=== PATIENT | male | born 1940 | race Caucasian/White ===

== ENCOUNTER 2022-10-24 09:31 | Inpatient (IN) | payer MEDICARE ==
[2022-10-24 10:12] LABS: #Basophils 0.1 thou/uL (0.0-0.2); #Eosinphils 0.3 thou/uL (0.0-0.7); #Lymphocytes 1.5 thou/uL (1.20-3.40); #Monocytes 1.1 thou/uL (0.11-0.59); #Neutrophils 8.7 thou/uL (1.40-6.50); %Basophils 0.5 % (0.0-1.0); %Eosinophils 2.9 % (0.0-10.0); %Lymphocytes 12.8 % (21.0-51.0); %Monocytes 9.6 % (0.0-10.0); %Neutrophils 74.2 % (42.0-75.0); Hemoglobin 14.4 g/dL (14.0-18.0); Mean Corpuscular Hemoglobin 32.4 pg (27.0-31.0); Mean Corpuscular Volume 98.2 fl (78.0-98.0); Mean Platelet Volume 7.7 fL (7.4-10.4); Platelet Count 359 10x3/uL (130-400); RBC Distribution Width 12.7 % (11.5-14.5); Red Blood Cell (RBC) Count 4.45 mill/uL (4.70-6.10); White Blood Cell (WBC) Count 11.7 10x3/uL (4.8-10.8)
[2022-10-24 10:37] LABS: Acetaminophen Less than 10.0 mcg/mL (10.0-30.0); Alcohol Less than 10 mg/dL (Less than 10); Salicylate Less than 8.0 mg/dL (15.0-30.0)
[2022-10-24 10:42] LABS: ALT (SGPT) 133 U/L (8-55); AST (SGOT) 54 U/L (5-34); Albumin 3.9 g/dL (3.4-4.8); Alkaline Phosphatase 143 U/L (40-110); Anion Gap 16 mmol/L (10-20); BUN (Urea Nitrogen) 38 mg/dL (8.4-25.7); Bilirubin, Total 0.7 mg/dL (0.2-1.2); Calc. Creatinine Clearance 0 mL/min (70-130); Calcium 9.5 mg/dL (7.8-10.44); Carbon Dioxide 25 mmol/L (23-31); Chloride 101 mmol/L (98-107); Estimated GFR 73; Globulin 2.6 g/dL (2.4-3.5); Glucose 128 mg/dL (83-110); Lipase 8 U/L (8-78); Potassium 4.6 mmol/L (3.5-5.1); Protein, Total 6.5 g/dL (5.8-8.1); Sodium 137 mmol/L (136-145)
[2022-10-24 11:09] LABS: Bilirubin Negative (Negative); Blood, Urine Trace (Negative); Clarity Clear (Clear); Glucose, Urine (Dipstick) Normal (Negative); Ketone, Urine Negative (Negative); Leukocyte 250 Leu/uL (Negative); Nitrite Negative (Negative); Protein, Urine (Dipstick) 20 mg/dL (Neg-Trace); Specific Gravity, Urine 1.024 (1.002-1.036); Squamous Epithelial None Seen HPF (0-3); Urobilinogen Normal mg/dL (Less than 2); WBC/HPF Greater than 50 HPF (0-3)
[2022-10-24 11:10] LABS: Bacteria/HPF Rare-Few HPF (None Seen); Sperm/HPF 2+ HPF (None Seen)
[2022-10-24 11:16] LABS: Amphetamine Not Detected (NotDetected); Barbiturates Screen Not Detected (NotDetected); Benzodiazepine Screen Not Detected (NotDetected); Cocaine Metabolite Screen Not Detected (NotDetected); Methadone Not Detected (NotDetected); Methamphetamine Not Detected (NotDetected); Opiate Screen Not Detected (NotDetected); Oxycodone Screen Not Detected (NotDetected); Phencyclidine (PCP) Not Detected (NotDetected); THC/Cannabinoid Screen Not Detected (NotDetected); Tricyclic Screen Detected (NotDetected)
[2022-10-24 17:18] VITALS: BMI 27.1
[2022-10-25 05:08] LABS: Cardiac Risk 3.8 (Less than 4.5)
[2022-10-25] MEDS ORDERED: Lorazepam 2 MG/ML VIAL SLOW IVP SCH (09:30)
[2022-10-25] MEDS ORDERED: Acetaminophen 325 MG TAB PO SCH (11:30)
[2022-10-25] MEDS: Atorvastatin Calcium 20 MG TAB PO SCH (22:03)
[2022-10-26] MEDS ORDERED: Lisinopril 20 MG TAB PO SCH (09:00)
[2022-10-26] MEDS ORDERED: Nebivolol HCl 5 MG TAB PO SCH (09:00)
[2022-10-26] MEDS ORDERED: Hydrochlorothiazide 25 MG TAB PO SCH (09:00)
[2022-10-26] MEDS ORDERED: Sodium Chloride 0.9% 500 ML IV SCH (16:30)
[2022-10-26] MEDS: Atorvastatin Calcium 20 MG TAB PO SCH (22:08)
[2022-10-27] MEDS ORDERED: Sodium Chloride 0.9% 1,000 ML IV SCH ×2 (07:45→10:15)
[2022-10-27 09:10] LABS: #Eosinphils 0.7 thou/uL (0.0-0.7); #Lymphocytes 1.4 thou/uL (1.20-3.40); #Monocytes 1.3 thou/uL (0.11-0.59); %Basophils 0.2 % (0.0-1.0); %Lymphocytes 8.1 % (21.0-51.0); %Monocytes 7.6 % (0.0-10.0); %Neutrophils 80.1 % (42.0-75.0); Hemoglobin 13.7 g/dL (14.0-18.0); Mean Corpuscular Hemoglobin 32.6 pg (27.0-31.0); Mean Corpuscular Volume 98.9 fl (78.0-98.0); Mean Platelet Volume 8.3 fL (7.4-10.4); Platelet Count 331 10x3/uL (130-400); RBC Distribution Width 12.8 % (11.5-14.5); Red Blood Cell (RBC) Count 4.21 mill/uL (4.70-6.10); White Blood Cell (WBC) Count 17.5 10x3/uL (4.8-10.8)
[2022-10-27 09:32] LABS: ALT (SGPT) 97 U/L (8-55); AST (SGOT) 49 U/L (5-34); Albumin 3.4 g/dL (3.4-4.8); Alkaline Phosphatase 133 U/L (40-110); Anion Gap 18 mmol/L (10-20); BUN (Urea Nitrogen) 69 mg/dL (8.4-25.7); Bilirubin, Total 0.8 mg/dL (0.2-1.2); Calc. Creatinine Clearance 40 mL/min (70-130); Calcium 9.6 mg/dL (7.8-10.44); Carbon Dioxide 20 mmol/L (23-31); Chloride 105 mmol/L (98-107); Estimated GFR 37; Globulin 3.2 g/dL (2.4-3.5); Glucose 147 mg/dL (83-110); Magnesium 2.3 mg/dL (1.6-2.6); Potassium 3.8 mmol/L (3.5-5.1); Protein, Total 6.6 g/dL (5.8-8.1); Sodium 139 mmol/L (136-145)
[2022-10-27] MEDS ORDERED: Vancomycin 1 GM in Premix Bag 1 BAG IVPB SCH (09:37)
[2022-10-27] MEDS ORDERED: levETIRAcetam 500 MG TAB PO SCH ×2 (10:00→21:00)
[2022-10-27 11:16] LABS: Actual Bicarbonate (HCO3v) 23 mEq/L (22-28); Base Excess -2.3 mEq/L (-2.0 to +3.0); Calcium, Ionized (venous) 1.14 mmol/L (1.16-1.32); Chloride (VBG) 103 mmol/L (98-106); Hemoglobin (Hb) 14.7 g/dL (12.6-17.4); Potassium (VBG) 3.69 mmol/L (3.70-5.30); Sodium 138.1 mmol/L (133-146); pH (venous) 7.36 (7.32-7.43)
[2022-10-27] MEDS: Sodium Chloride 0.9% 1,000 ML IV SCH ×2 (11:25→16:14)
[2022-10-27] MEDS: Cefepime 2 GM in Sodium Chloride 0.9% 100 ML IVPB SCH ×2 (11:25→21:32)
[2022-10-27] MEDS: Vancomycin 1.5 GRAM/300 ML BAG 1.5 GM in Premix Bag 1 BAG IVPB SCH (12:32)
[2022-10-27] MEDS: metroNIDAZOLE 500 MG in Premix Bag 1 BAG IVPB SCH ×2 (16:10→22:51)
[2022-10-27] MEDS: Melatonin 3 MG TAB PO SCH (21:30)
[2022-10-27] MEDS: Atorvastatin Calcium 20 MG TAB PO SCH (21:31)
[2022-10-27] MEDS: levETIRAcetam 500 mg/5 ml Oral Solution PO SCH (22:51)
[2022-10-28 04:51] LABS: #Eosinphils 0.6 thou/uL (0.0-0.7); #Lymphocytes 1.3 thou/uL (1.20-3.40); #Monocytes 0.9 thou/uL (0.11-0.59); #Neutrophils 12.3 thou/uL (1.40-6.50); %Basophils 0.2 % (0.0-1.0); %Eosinophils 4.1 % (0.0-10.0); %Lymphocytes 8.4 % (21.0-51.0); %Monocytes 6.2 % (0.0-10.0); %Neutrophils 81.2 % (42.0-75.0); Hemoglobin 12.9 g/dL (14.0-18.0); Mean Corpuscular HGB CONC 33.2 g/dL (32.0-36.0); Mean Corpuscular Hemoglobin 32.7 pg (27.0-31.0); Mean Corpuscular Volume 98.5 fl (78.0-98.0); Mean Platelet Volume 8.5 fL (7.4-10.4); Platelet Count 288 10x3/uL (130-400); RBC Distribution Width 12.6 % (11.5-14.5); Red Blood Cell (RBC) Count 3.94 mill/uL (4.70-6.10); White Blood Cell (WBC) Count 15.2 10x3/uL (4.8-10.8)
[2022-10-28 05:12] LABS: ALT (SGPT) 107 U/L (8-55); AST (SGOT) 60 U/L (5-34); Alkaline Phosphatase 116 U/L (40-110); Anion Gap 15 mmol/L (10-20); BUN (Urea Nitrogen) 50 mg/dL (8.4-25.7); Bilirubin, Direct 0.3 mg/dL (0.1-0.3); Bilirubin, Total 0.5 mg/dL (0.2-1.2); Calc. Creatinine Clearance 61 mL/min (70-130); Calcium 9.3 mg/dL (7.8-10.44); Carbon Dioxide 22 mmol/L (23-31); Chloride 107 mmol/L (98-107); Estimated GFR 62; Glucose 119 mg/dL (83-110); Potassium 3.5 mmol/L (3.5-5.1); Protein, Total 5.9 g/dL (5.8-8.1); Sodium 140 mmol/L (136-145)
[2022-10-28 05:31] LABS: HBCM Index 0.16 S/CO (0-0.79); HBSAg Index 0.24 S/CO (0-0.99); Hep A IgM AB Non-Reactive (NonReactive); Hep A IgM S/CO 0.21 S/CO (0-0.79); Hep B Surf Ag Non-Reactive S/CO (NonReactive); Hep C IgG Ab Non-Reactive (NonReactive); Hep C Index 0.07 S/CO (0-0.79); Hepatitis B Core IgM Abs Non-Reactive (NonReactive)
[2022-10-28] MEDS: Sodium Chloride 0.9% 1,000 ML IV SCH (06:06)
[2022-10-28] MEDS: metroNIDAZOLE 500 MG in Premix Bag 1 BAG IVPB SCH ×2 (06:07→15:09)
[2022-10-28 08:37] LABS: Bacteria/HPF None Seen HPF (None Seen); Bilirubin Negative (Negative); Blood, Urine Negative (Negative); CAUTI Indications for Culture Alt mental st,lethar; Clarity Clear (Clear); Glucose, Urine (Dipstick) Normal (Negative); Ketone, Urine Negative (Negative); Leukocyte Negative Leu/uL (Negative); Nitrite Negative (Negative); Protein, Urine (Dipstick) Negative (Neg-Trace); RBC/HPF 0-3 HPF (0-3); Specific Gravity, Urine 1.015 (1.002-1.036); Squamous Epithelial 0-3 HPF (0-3); Urobilinogen Normal mg/dL (Less than 2); WBC/HPF 0-3 HPF (0-3)
[2022-10-28 08:39] LABS: Urine Culture Reflex No No
[2022-10-28] MEDS: levETIRAcetam 500 mg/5 ml Oral Solution PO SCH ×2 (10:06→23:12)
[2022-10-28] MEDS: Cefepime 2 GM in Sodium Chloride 0.9% 100 ML IVPB SCH ×2 (10:06→23:27)
[2022-10-28] MEDS: Vancomycin 1.5 GRAM/300 ML BAG 1.5 GM in Premix Bag 1 BAG IVPB SCH (11:57)
[2022-10-28] MEDS: Atorvastatin Calcium 40 MG TAB PO SCH (23:11)
[2022-10-28] MEDS: Melatonin 3 MG TAB PO SCH (23:12)
[2022-10-29] MEDS: metroNIDAZOLE 500 MG in Premix Bag 1 BAG IVPB SCH ×4 (00:54→23:51)
[2022-10-29] MEDS: Acetaminophen 325 MG TAB PO PRN ×2 (05:28→14:04)
[2022-10-29] MEDS: levETIRAcetam 500 mg/5 ml Oral Solution PO SCH ×2 (08:31→20:42)
[2022-10-29] MEDS: Cefepime 2 GM in Sodium Chloride 0.9% 100 ML IVPB SCH ×2 (09:52→20:53)
[2022-10-29 10:38] LABS: Vancomycin, Trough 9.4 ug/mL
[2022-10-29] MEDS ORDERED: VANCOMYCIN 1.75 GM/500 ML BAG 1.75 GM in Premix Bag 1 BAG IVPB SCH (11:00)
[2022-10-29] MEDS: Atorvastatin Calcium 40 MG TAB PO SCH (20:42)
[2022-10-29] MEDS: Melatonin 3 MG TAB PO SCH (20:42)
[2022-10-30 04:47] LABS: #Eosinphils 0.8 thou/uL (0.0-0.7); #Lymphocytes 1.3 thou/uL (1.20-3.40); #Monocytes 0.8 thou/uL (0.11-0.59); #Neutrophils 8.5 thou/uL (1.40-6.50); %Basophils 0.2 % (0.0-1.0); %Eosinophils 6.8 % (0.0-10.0); %Lymphocytes 11.2 % (21.0-51.0); %Monocytes 7.3 % (0.0-10.0); %Neutrophils 74.6 % (42.0-75.0); Hemoglobin 12.5 g/dL (14.0-18.0); Mean Corpuscular HGB CONC 33.6 g/dL (32.0-36.0); Mean Corpuscular Hemoglobin 32.8 pg (27.0-31.0); Mean Corpuscular Volume 97.6 fl (78.0-98.0); Mean Platelet Volume 8.5 fL (7.4-10.4); Platelet Count 262 10x3/uL (130-400); RBC Distribution Width 12.3 % (11.5-14.5); Red Blood Cell (RBC) Count 3.81 mill/uL (4.70-6.10); White Blood Cell (WBC) Count 11.4 10x3/uL (4.8-10.8)
[2022-10-30 05:45] LABS: ALT (SGPT) 58 U/L (8-55); AST (SGOT) 30 U/L (5-34); Albumin 2.8 g/dL (3.4-4.8); Alkaline Phosphatase 98 U/L (40-110); Anion Gap 14 mmol/L (10-20); BUN (Urea Nitrogen) 18 mg/dL (8.4-25.7); Bilirubin, Total 0.5 mg/dL (0.2-1.2); Calc. Creatinine Clearance 88 mL/min (70-130); Carbon Dioxide 18 mmol/L (23-31); Chloride 109 mmol/L (98-107); Estimated GFR 87; Globulin 2.5 g/dL (2.4-3.5); Glucose 101 mg/dL (83-110); Magnesium 1.6 mg/dL (1.6-2.6); Potassium 3.2 mmol/L (3.5-5.1); Protein, Total 5.3 g/dL (5.8-8.1); Sodium 138 mmol/L (136-145)
[2022-10-30] MEDS: metroNIDAZOLE 500 MG in Premix Bag 1 BAG IVPB SCH (09:14)
[2022-10-30] MEDS: levETIRAcetam 500 mg/5 ml Oral Solution PO SCH (09:15)
[2022-10-30] MEDS: Cefepime 2 GM in Sodium Chloride 0.9% 100 ML IVPB SCH (09:15)
[2022-10-30 12:00] VITALS: BP 135/66; TEMP 98.4
[2022-10-30] MEDS: Acetaminophen 325 MG TAB PO PRN (13:15)
== END 2022-10-30 14:40 | DRG 64 ==
LOC: ERS 09:31 → ERHOLD 11:16 → 2NO 15:34
PROVIDERS: ADMIT Internal Medicine; ATTEND Internal Medicine
PROC: 4A033R1 Measurement of Arterial Saturation, Peripheral, Percutaneous Approach (ICD-10-PCS; principal; 2022-10-24)
DX: I62.9 Nontraumatic intracranial hemorrhage, unspecified (principal); G93.6 Cerebral edema; G81.94 Hemiplegia, unspecified affecting left nondominant side; N17.9 Acute kidney failure, unspecified; N39.0 Urinary tract infection, site not specified; R47.01 Aphasia; Z20.822 Contact with and (suspected) exposure to COVID-19; I10 Essential (primary) hypertension; R13.10 Dysphagia, unspecified; I95.9 Hypotension, unspecified; I48.0 Paroxysmal atrial fibrillation; R29.701 NIHSS score 1; B96.4 Proteus (mirabilis) (morganii) as the cause of diseases classified elsewhere; E78.5 Hyperlipidemia, unspecified; I48.91 Unspecified atrial fibrillation; K21.9 Gastro-esophageal reflux disease without esophagitis; Z79.82 Long term (current) use of aspirin; Z79.01 Long term (current) use of anticoagulants; Z79.899 Other long term (current) drug therapy; Z87.891 Personal history of nicotine dependence
CPT/HCPCS: 36415; 70450; 70551; 71045; 74176; 74230; 76705; 76770; 80048; 80053; 80061; 80074; 80076; 80202; 80306; 80307; 81001; 81003; 81015; 82140; 82805; 83605; 83690; 83735; 85025; 87040; 93005; 93010; 93306; 94760; 95816; 95819; 95957; 96374; J0692; J2060; J3370; J3490; J7030; J7050